=== PATIENT | male | born 1985 | race Caucasian/White ===

== ENCOUNTER 2018-05-06 18:01 | Inpatient (IN) | payer OTHER ==
[2018-05-06 18:38] VITALS: BMI 27.3
--- NOTE | 2018-05-06 22:23 | HP ---
"CIWA Score - Admission Criteria [facility]AS Guidelines: Admission for Medically Managed Detox: Requires at least one of the followin. CIWA greater than 12 2. Seizures within the past 24 hours 3. Delirium tremens within the past 24 hours 4. Hallucinations within the past 24 hours 5. Acute intervention needed for co occurring medical disorder 6. Acute intervention needed for co occurring psychiatric disorder 7. Severe withdrawal that cannot be handled at a lower level of care (continued vomiting, continued diarrhea, abnormal vital signs) requiring intravenous medication and/or fluids 8. Admission ROS S - HPI Chief Complaint: Here for rehab stabilization. Current cocaine use. Allergies/Adverse Reactions: Allergies Allergy/AdvReac Type Severity Reaction Status Date / Time shellfish derived Allergy Severe Verified 05/06/18 19:24 History of Present Illness: Current hx of cocaine use since age 30. Past hx opiate use disorder - stopped about 10 days ago. Stopped nicotine about 10 days ago. Here for stabilization of substance use withdrawal and to see a MH provider and get restarted on psych meds. Off MH meds for approx 2 months. Last prescription filled in [facility] in [facility]. Hx Bipolar disorder and insomnia Hx Cluster headaches. Hx Arachnoid cyst Hx: asthma - seasonal - no recent exacerbation. Hx seizures - last 2 years ago. Denies blackouts/overdoses Search Terms: Shaheed Drummond, 1985 Search Date: 05/06/2018 10:20:19 PM The Drug Utilization Report below displays all of the controlled substance prescriptions, if any, that your patient has filled in the last twelve months. The information displayed on this report is compiled from pharmacy submissions to the Department, and accurately reflects the information as submitted by the pharmacies. This report was requested by: Abi Burk | Reference #: [id number] Others' Prescriptions Patient Name: Shaheed Drummond Date: 1985 Address: [address] [place] [address] Sex: Male Rx Written Rx Dispensed Drug Quantity Days Supply Prescriber Name 01/27/2018 01/27/2018 oxycodone hcl 30 mg tablet 150 30 Philippe Garcia MD 01/27/2018 01/27/2018 alprazolam 1 mg tablet 150 30 Philippe Garcia MD 01/27/2018 01/27/2018 dextroamp-amphetamin 30 mg tab 60 30 Philippe Garcia MD 12/09/2017 12/26/2017 oxycodone hcl 30 mg tablet 180 30 BlattiPhilippe MD 12/09/2017 12/26/2017 dextroamp-amphetamin 30 mg tab 60 30 BlattiPhilippe MD 12/09/2017 12/24/2017 oxycodone-acetaminophen 10-325 mg tab 120 30 BlattiPhilippe MD 12/09/2017 12/09/2017 alprazolam 2 mg tablet 120 30 Blatti, Philippe Epps MD 11/28/2017 11/28/2017 oxycodone hcl 30 mg tablet 180 30 BlattiPhilippe MD 11/28/2017 11/28/2017 dextroamp-amphetamin 30 mg tab 60 30 BlattiPhilippe MD 11/25/2017 11/25/2017 hydrocodone-acetaminophen 10-325 mg tablet 120 30 Blatti Philippe MD 11/11/2017 11/20/2017 alprazolam 1 mg tablet 120 30 BlattiPhilippe MD 11/11/2017 11/11/2017 oxycodone hcl 30 mg tablet 200 20 BlattiPhilippe MD 11/11/2017 11/11/2017 hydromorphone 8 mg tablet 80 20 BlattiPhilippe MD 10/30/2017 11/05/2017 oxycodone hcl 30 mg tablet 60 10 BlattiPhilippe MD 10/30/2017 11/04/2017 hydromorphone 8 mg tablet 25 7 BlattiPhilippe MD 10/03/2017 10/27/2017 dextroamp-amphetamin 30 mg tab 60 30 BlattiPhilippe MD 10/03/2017 10/13/2017 oxycodone hcl 30 mg tablet 240 30 BlattiPhilippe MD 10/03/2017 10/03/2017 hydromorphone 8 mg tablet 180 30 BlattPhilippe gómez MD 09/12/2017 09/29/2017 dextroamp-amphetamin 30 mg tab 60 30 BlattPhilippe gómez MD 09/12/2017 09/16/2017 hydromorphone 4 mg tablet 120 30 BlattPhilippe gómez MD 09/12/2017 09/16/2017 oxycodone hcl 30 mg tablet 360 30 BlattPhilippe gómez MD Patient Name: Shaheed Drummond Date: 1985 Address: [address] [place] [id number] Sex: Male Rx Written Rx Dispensed Drug Quantity Days Supply Prescriber Name 10/23/2017 10/23/2017 buprenorphine-naloxone 8-2 mg sl tablet 24 8 Philippe Garcia MD 10/20/2017 10/20/2017 alprazolam 2 mg tablet 120 30 Philippe Garcia MD 10/03/2017 10/09/2017 alprazolam 1 mg tablet 120 30 BlaPhilippe stone MD 08/28/2017 09/14/2017 alprazolam 1 mg tablet 180 30 BlaPhilippe stone MD 08/28/2017 09/04/2017 hydromorphone 8 mg tablet 180 30 Philippe Garcia MD 08/19/2017 08/30/2017 dextroamp-amphetamin 30 mg tab 60 30 BlaPhilippe stone MD 08/28/2017 08/28/2017 oxycodone hcl 30 mg tablet 360 30 BlaPhilippe stone MD 08/22/2017 08/22/2017 oxycodone hcl 30 mg tablet 96 8 BlattPhilippe gómez MD 08/05/2017 08/16/2017 alprazolam 1 mg tablet 180 30 BlaPhilippe stone MD 07/16/2017 07/31/2017 dextroamp-amphetamin 30 mg tab 60 30 BlaPhilippe stone MD 07/23/2017 07/23/2017 alprazolam 1 mg tablet 180 30 BlaPhilippe stone MD 07/16/2017 07/19/2017 oxycodone hcl 30 mg tablet 180 30 BlaPhilippe stone MD 07/16/2017 07/16/2017 hydromorphone 8 mg tablet 120 30 BlaPhilippe stone MD 06/24/2017 07/06/2017 dextroamp-amphetamin 30 mg tab 60 30 Philippe Garcia MD 06/24/2017 07/06/2017 oxycodone hcl 30 mg tablet 90 30 BlaPhilippe stone MD 06/24/2017 06/27/2017 oxycodone hcl er 80 mg tablet 90 30 BlaPhilippe stone MD 06/24/2017 06/24/2017 oxycodone hcl er 40 mg tablet 20 7 BlaPhilippe stone MD 06/24/2017 06/24/2017 alprazolam 1 mg tablet 180 30 BlaPhilippe stone MD 05/28/2017 06/09/2017 oxycodone hcl 30 mg tablet 180 30 Philippe Garcia MD 05/28/2017 06/08/2017 alprazolam 2 mg tablet 100 16 Phiilppe Garcia MD 05/28/2017 06/03/2017 dextroamp-amphetamin 30 mg tab 60 30 Philippe Garcia MD 05/28/2017 06/03/2017 hydromorphone 8 mg tablet 120 30 BlaPhilippe stone MD 04/29/2017 05/13/2017 oxycodone hcl 30 mg tablet 180 30 Philippe Garcia MD 04/29/2017 05/08/2017 alprazolam 1 mg tablet 180 30 Philippe Garcia MD Patient Name: Shaheed Drummond Date: 1985 Address: [address] [place] [id number] Sex: Male Rx Written Rx Dispensed Drug Quantity Days Supply Prescriber Name 08/20/2017 08/20/2017 dextroamp-amphetamin 10 mg tab 60 30 Philippe Garcia MD Patient Name: Shaheed Drummond Date: 1985 Address: [address] [place] [id number] Sex: Male Rx Written Rx Dispensed Drug Quantity Days Supply Prescriber Name 08/05/2017 08/05/2017 oxycodone hcl 30 mg tablet 240 30 Philippe Garcia MD 08/05/2017 08/05/2017 hydromorphone 8 mg tablet 180 30 Philippe Garcia MD 07/29/2017 07/29/2017 hydromorphone 4 mg tablet 30 3 Eduin Regalado MD 07/26/2017 07/26/2017 hydromorphone 4 mg tablet 30 5 Eduin Regalado MD 07/25/2017 07/25/2017 oxycodone-acetaminophen 5-325 mg tablet 14 3 Laura Parikh ([place]) Exam Limitations: No Limitations - Ebola screening Have you traveled outside of the country in the last 21 days: No Have you had contact with anyone from an Ebola affected area: No Have you been sick,other than usual withdrawal symptoms: No Do you have a fever: No - Review of Systems Constitutional: Chills, Diaphoresis, Changes in sleep (Difficulty falling asleep ) EENT: reports: Blurred Vision Respiratory: reports: No Symptoms reported, Other (Seasonal asthma - (Fall)) Cardiac: reports: No Symptoms Reported GI: reports: Indigestion (Hiatal hernia - resolved w/ tums) : reports: No Symptoms Reported Musculoskeletal: reports: No Symptoms Reported Integumentary: reports: No Symptoms Reported Neuro: reports: Tremors (Mild) Endocrine: reports: No Symptoms Reported Hematology: reports: No Symptoms Reported Psychiatric: reports: Judgement Intact, Orientated x3, Agitated, Anxious, Depressed (Denies toughts of harming self or others) Patient History - PPD History Previous Implant?: Yes Documented Results: Negative w/o proof Implanted On Prior R Admission?: No PPD to be Administered?: Yes - Smoking Cessation Smoking history: Former smoker Have you smoked in the past 12 months: Yes Aproximately how many cigarettes per day: 20 (Stopped 2 weeks ago) Hx Chewing Tobacco Use: No Initiated information on smoking cessation: Yes 'Breaking Loose' booklet given: 05/06/18 - Substance & Tx. History Hx Alcohol Use: No Hx Substance Use: Yes Substance Use Type: Cocaine, Heroin, Marijuana, Opiates Hx Substance Use Treatment: Yes (detox, rehabs, past Suboxone, past [facility] ) Admission Physical Exam S - Vital Signs Vital Signs: Vital Signs - 24 hr 05/06/18 18:35 Temperature 98.8 F Pulse Rate 75 Respiratory 18 Rate Blood Pressure 112/70 - Physical General Appearance: Yes: Mild Distress, Tremorous, Anxious HEENTM: Yes: EOMI, Hearing grossly Normal, Normocephalic, Normal Voice, ADELAIDA Respiratory: Yes: Lungs Clear, Normal Breath Sounds, No Respiratory Distress Neck: Yes: No masses,lesions,Nodules, Supple Breast: Yes: Breast Exam Deferred Cardiology: Yes: Regular Rhythm, Regular Rate, S1, S2 (split) Abdominal: Yes: Normal Bowel Sounds, Non Tender, Soft Genitourinary: Yes: Within Normal Limits Back: Yes: Normal Inspection Musculoskeletal: Yes: full range of Motion, Gait Steady, Other (Missing tip of ( L) index finger. FROM. Cap refill < 3 sec.) Extremities: Yes: Normal Capillary Refill, Normal Inspection, Normal Range of Motion, Non-Tender, Tremors (Mild tremors of hands) Neurological: Yes: soldering machine feeder II-XII NML intact, Fully Oriented, Alert, Motor Strength 5/5, Normal Mood/Affect Integumentary: Yes: Normal Color, Dry, Warm Lymphatic: Yes: Within Normal Limits - Diagnostic (1) Cocaine use disorder Current Visit: Yes Status: Chronic (2) Nicotine dependence in remission Current Visit: Yes Status: Acute Qualifiers: Nicotine product type: cigarettes Qualified Code(s): F17.211 - Nicotine dependence, cigarettes, in remission (3) Mild opioid abuse in early remission Current Visit: No Status: Acute Cleared for Admission [facility] - Detox or Rehab Claeared for Rehab Admission: Yes [facility] Breath Alcohol Content Breath Alcohol Content: 0 Urine Drug Screen - Results Drug Screen Negative: No Urine Drug Screen Results: [facility] Inpatient Rehab Admission - Initial Determination Are CD services needed?: Yes Free of communicable disease: Yes Not in need of hospitalization: Yes - Rehab Admission Criteria Previous failed treatment: Yes Poor recovery environment: Yes Comorbidities: Yes Lacks judgement: No Patient is meeting Inpatient Rehab admission criteria:: Yes"
[2018-05-06] MEDS ORDERED: MAGNESIUM CITRATE 300 ML BOTTLE PO PRN (22:52)
[2018-05-06] MEDS ORDERED: ACETAMINOPHEN 325 MG TABLET (FP) PO PRN (22:52)
[2018-05-06] MEDS ORDERED: MAGNESIUM HYDROX 2400MG/30ML ORAL SUSPENSION 30 ML CUP PO PRN (22:52)
[2018-05-06] MEDS ORDERED: IBUPROFEN 400 MG TABLET (FP) PO PRN (22:52)
[2018-05-06] MEDS ORDERED: MAG HYDROX/AL HYDROX/SIMETH 30 ML UNIT-DOSE CUP PO PRN (22:52)
[2018-05-06] MEDS ORDERED: LOPERAMIDE HCL 2 MG CAPSULE PO PRN (22:52)
[2018-05-06] MEDS ORDERED: MENTHOL/PHENOL 1 EACH UD MM PRN (22:52)
[2018-05-06] MEDS: cloNIDine HCL 0.1 MG TABLET PO SCH (23:25)
[2018-05-06] MEDS: hydrOXYzine PAMOATE 50 MG CAPSULE (FP) PO PRN (23:26)
[2018-05-06] MEDS: MELATONIN 5 MG TABLETS PO PRN (23:26)
[2018-05-06] MEDS ORDERED: TUBERCULIN PPD 5 TU/0.1ML VIAL ID ONE (23:27)
[2018-05-07 01:26] LABS: URINE APPEARANCE CLOUDY; URINE BILIRUBIN NEGATIVE (<2.0 mg/dL); URINE COLOR YELLOW; URINE GLUCOSE (UA) NEGATIVE (NEGATIVE); URINE KETONE NEGATIVE (NEGATIVE); URINE LEUK ESTERASE NEGATIVE (NEGATIVE); URINE NITRITE NEGATIVE (NEGATIVE); URINE PROTEIN NEGATIVE (NEGATIVE); URINE UROBILINOGEN NEGATIVE mg/dL (0.2-1.0)
[2018-05-07] MEDS: PRENATAL VITAMINS W/ FOLIC ACID TABLET (FP) PO SCH (10:28)
[2018-05-07] MEDS: cloNIDine HCL 0.1 MG TABLET PO SCH ×2 (10:28→21:27)
[2018-05-07] MEDS: hydrOXYzine PAMOATE 50 MG CAPSULE (FP) PO PRN ×2 (10:28→21:27)
[2018-05-07] MEDS: NICOTINE POLACRILEX 2 MG GUM BC PRN (10:29)
[2018-05-07 11:05] LABS: ALBUMIN 3.8 g/dl (3.4-5.0); ALK PHOS 82 U/L (45-117); ANION GAP 7 MMOL/L (8-16); BILIRUBIN,TOTAL 0.4 mg/dL (0.2-1); BLOOD UREA NITROGEN 17 mg/dL (7-18); CALCIUM 8.8 mg/dL (8.5-10.1); CHLORIDE 107 mmol/L (98-107); CO2 27 mmol/L (21-32); CREATININE 1.1 mg/dL (0.55-1.3); GLUCOSE,RANDOM 132 mg/dL (74-106); SGOT/AST 16 U/L (15-37); SGPT/ALT 22 U/L (13-61); SODIUM 141 mmol/L (136-145); TOT PROT 6.6 g/dl (6.4-8.2)
[2018-05-07 11:13] LABS: HEMATOCRIT 42.8 % (35.4-49); HEMOGLOBIN 14.8 GM/dL (11.7-16.9); MCH 29.2 pg (25.7-33.7); MCHC 34.5 g/dl (32.0-35.9); MEAN CELL VOLUME 84.7 fl (80-96); MEAN PLT VOLUME 9.4 fl (7.5-11.1); PLATELET COUNT 303 K/MM3 (134-434); RBC 5.05 M/mm3 (4.00-5.60); RDW 12.8 % (11.9-15.9); WHITE BLOOD COUNT 6.8 K/mm3 (4.0-10.0)
--- NOTE | 2018-05-07 12:28 | EKG ---
Test Reason : Blood Pressure : / mmHG Vent. Rate : 062 BPM Atrial Rate : 062 BPM P-R Int : 144 ms QRS Dur : 104 ms QT Int : 402 ms P-R-T Axes : 039 066 046 degrees QTc Int : 408 ms NORMAL SINUS RHYTHM NORMAL ECG NO PREVIOUS ECGS AVAILABLE Confirmed by JOJO BLAND, JACKLYN ([id number]) on 05/07/2018 12:28:08 PM Referred By: Confirmed By:JACKLYN URIBE MD
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
[2018-05-07] MEDS: THIAMINE HCL 100 MG TABLET (FP) PO SCH (21:27)
[2018-05-07] MEDS: risperiDONE 1 MG TABLET (FP) PO SCH (21:27)
[2018-05-07] MEDS: MELATONIN 5 MG TABLETS PO PRN (21:27)
[2018-05-08] MEDS: hydrOXYzine PAMOATE 50 MG CAPSULE (FP) PO PRN ×2 (10:23→21:25)
[2018-05-08] MEDS: risperiDONE 1 MG TABLET (FP) PO SCH ×2 (10:23→21:25)
[2018-05-08] MEDS: PRENATAL VITAMINS W/ FOLIC ACID TABLET (FP) PO SCH (10:23)
[2018-05-08] MEDS: cloNIDine HCL 0.1 MG TABLET PO SCH ×2 (10:23→21:25)
[2018-05-08] MEDS: THIAMINE HCL 100 MG TABLET (FP) PO SCH (21:25)
[2018-05-09] MEDS: PRENATAL VITAMINS W/ FOLIC ACID TABLET (FP) PO SCH (10:08)
[2018-05-09] MEDS: cloNIDine HCL 0.1 MG TABLET PO SCH ×2 (10:09→21:43)
[2018-05-09] MEDS: risperiDONE 1 MG TABLET (FP) PO SCH ×2 (10:09→21:42)
[2018-05-09] MEDS: THIAMINE HCL 100 MG TABLET (FP) PO SCH (21:42)
[2018-05-10] MEDS: hydrOXYzine PAMOATE 50 MG CAPSULE (FP) PO PRN ×2 (10:32→21:33)
[2018-05-10] MEDS: risperiDONE 1 MG TABLET (FP) PO SCH ×2 (10:32→21:33)
[2018-05-10] MEDS: cloNIDine HCL 0.1 MG TABLET PO SCH ×2 (10:32→21:33)
[2018-05-10] MEDS: PRENATAL VITAMINS W/ FOLIC ACID TABLET (FP) PO SCH (10:32)
[2018-05-10] MEDS: THIAMINE HCL 100 MG TABLET (FP) PO SCH (21:33)
[2018-05-11] MEDS: cloNIDine HCL 0.1 MG TABLET PO SCH ×2 (10:30→21:34)
[2018-05-11] MEDS: PRENATAL VITAMINS W/ FOLIC ACID TABLET (FP) PO SCH (10:30)
[2018-05-11] MEDS: risperiDONE 1 MG TABLET (FP) PO SCH ×2 (10:30→21:34)
[2018-05-11] MEDS: THIAMINE HCL 100 MG TABLET (FP) PO SCH (21:34)
[2018-05-11] MEDS: MELATONIN 5 MG TABLETS PO PRN (21:34)
[2018-05-12] MEDS: cloNIDine HCL 0.1 MG TABLET PO SCH ×2 (10:23→21:46)
[2018-05-12] MEDS: PRENATAL VITAMINS W/ FOLIC ACID TABLET (FP) PO SCH (10:23)
[2018-05-12] MEDS: risperiDONE 1 MG TABLET (FP) PO SCH ×2 (10:23→21:46)
[2018-05-12] MEDS: THIAMINE HCL 100 MG TABLET (FP) PO SCH (21:45)
[2018-05-13] MEDS: risperiDONE 1 MG TABLET (FP) PO SCH ×2 (10:15→21:45)
[2018-05-13] MEDS: PRENATAL VITAMINS W/ FOLIC ACID TABLET (FP) PO SCH (10:15)
[2018-05-13] MEDS: cloNIDine HCL 0.1 MG TABLET PO SCH ×2 (10:15→21:45)
[2018-05-13] MEDS: MELATONIN 5 MG TABLETS PO PRN (21:45)
[2018-05-13] MEDS: THIAMINE HCL 100 MG TABLET (FP) PO SCH (21:45)
[2018-05-14] MEDS: cloNIDine HCL 0.1 MG TABLET PO SCH ×2 (10:28→21:35)
[2018-05-14] MEDS: risperiDONE 1 MG TABLET (FP) PO SCH ×2 (10:28→21:35)
[2018-05-14] MEDS: PRENATAL VITAMINS W/ FOLIC ACID TABLET (FP) PO SCH (10:28)
[2018-05-14] MEDS: hydrOXYzine PAMOATE 50 MG CAPSULE (FP) PO PRN ×2 (15:58→21:36)
[2018-05-14] MEDS: THIAMINE HCL 100 MG TABLET (FP) PO SCH (21:35)
[2018-05-14] MEDS: MELATONIN 5 MG TABLETS PO PRN (21:36)
[2018-05-15] MEDS: PRENATAL VITAMINS W/ FOLIC ACID TABLET (FP) PO SCH (10:15)
[2018-05-15] MEDS: risperiDONE 1 MG TABLET (FP) PO SCH ×2 (10:15→21:35)
[2018-05-15] MEDS: cloNIDine HCL 0.1 MG TABLET PO SCH ×2 (10:16→21:35)
[2018-05-15] MEDS: THIAMINE HCL 100 MG TABLET (FP) PO SCH (21:35)
[2018-05-15] MEDS: MELATONIN 5 MG TABLETS PO PRN (21:35)
[2018-05-16] MEDS: cloNIDine HCL 0.1 MG TABLET PO SCH ×2 (10:43→21:45)
[2018-05-16] MEDS: risperiDONE 1 MG TABLET (FP) PO SCH ×2 (10:43→21:45)
[2018-05-16] MEDS: PRENATAL VITAMINS W/ FOLIC ACID TABLET (FP) PO SCH (10:43)
[2018-05-16] MEDS: THIAMINE HCL 100 MG TABLET (FP) PO SCH (21:45)
[2018-05-17] MEDS: PRENATAL VITAMINS W/ FOLIC ACID TABLET (FP) PO SCH (09:58)
[2018-05-17] MEDS: cloNIDine HCL 0.1 MG TABLET PO SCH ×2 (09:58→21:59)
[2018-05-17] MEDS: risperiDONE 1 MG TABLET (FP) PO SCH ×2 (09:58→21:59)
[2018-05-17] MEDS: NICOTINE POLACRILEX 2 MG GUM BC PRN (18:56)
[2018-05-17] MEDS: hydrOXYzine PAMOATE 50 MG CAPSULE (FP) PO PRN (18:56)
[2018-05-17] MEDS: THIAMINE HCL 100 MG TABLET (FP) PO SCH (21:59)
[2018-05-18] MEDS: cloNIDine HCL 0.1 MG TABLET PO SCH ×2 (10:00→21:48)
[2018-05-18] MEDS: PRENATAL VITAMINS W/ FOLIC ACID TABLET (FP) PO SCH (10:00)
[2018-05-18] MEDS: risperiDONE 1 MG TABLET (FP) PO SCH ×2 (10:00→21:48)
--- NOTE | 2018-05-18 14:21 | PN ---
Psychiatric Progress Note Vital Signs: Vital Signs Period Temp Pulse Resp BP Sys/Horner Pulse Ox Last 24 Hr 74-88 16-18 111-115/68-70 Date of Session: 05/18/18 Chief Complaint:: Discharge Note HPI: Patient addessing Opioid and Cocaine Dependence comorbid with Nicotine Dependence and Mood Disorder ROS: Asthma, Cluster headache, Arachnoid cyst Current Medications: Active Medications Generic Name Dose Route Start Last Admin Trade Name Freq PRN Reason Stop Dose Admin Acetaminophen 650 mg 05/06/18 22:52 Tylenol - PO Q4H PRN FEVER Al Hydroxide/Mg Hydroxide 30 ml 05/06/18 22:52 Mylanta Oral Suspension - PO Q6H PRN DYSPEPSIA Clonidine 0.1 mg 05/06/18 23:15 05/18/18 10:00 Catapres - PO 0.1 mg BID TANIYA Administration Eucalyptus/Menthol/Phenol/Sorbitol 1 each 05/06/18 22:52 Cepastat Lozenge - MM Q4H PRN SORE THROAT Hydroxyzine Pamoate 50 mg 05/06/18 22:52 05/17/18 18:56 Vistaril - PO 50 mg Q4H PRN Administration AGITATION Ibuprofen 400 mg 05/06/18 22:52 Motrin - PO Q6H PRN Pain level 4-6 Loperamide HCl 4 mg 05/06/18 22:52 Imodium - PO Q6H PRN DIARRHEA Magnesium Citrate 300 ml 05/06/18 22:52 Citroma - PO Q48H PRN CONSTIPATION Magnesium Hydroxide 30 ml 05/06/18 22:52 Milk Of Magnesia - PO DAILY PRN CONSTIPATION Melatonin 5 mg 05/06/18 22:00 05/15/18 21:35 Melatonin PO 5 mg HS PRN Administration INSOMNIA Nicotine Polacrilex 2 mg 05/06/18 22:52 05/17/18 18:56 Nicorette Gum - BC 2 mg Q2H PRN Administration NICOTINE REPLACEMENT RX Multivit/Folic Acid/Iron 1 tab 05/07/18 10:00 05/18/18 10:00 Vitamins (Sjr) - PO 1 tab DAILY TANIYA Administration Risperidone 1 mg 05/07/18 22:00 05/18/18 10:00 Risperdal - PO 1 mg BID TANIYA Administration Thiamine HCl 100 mg 05/07/18 22:00 05/17/18 21:59 Vitamin B1 - PO 100 mg HS TANIYA Administration Current Side Effect: No Lab tests ordered: Yes Lab tests reviewed: Yes Provider note:: Patient will complete this program on 05/19/18. He has met his treatment goals and will continue to address his issues in prison residential treatment at [facility] at [address] [place] [address]. Told journalists and other writers that from his participation in this program, he has learned to be consistent in order to have stability in his life. He responded well to Risperdal 1 mg po BID. Script for 30 days supply of that medication will be electronically transmitted to [facility] at [address] [place] [address]. He is stable for discharge on 05/19/18 Total face to face time:: 35 Mental Status Exam - Mental Status Exam Alert and Oriented to: Time, Place, Person Cognitive Function: Fair Patient Appearance: Well Groomed Mood: Hopeful, Euthymic Affect: Appropriate Patient Behavior: Cooperative Speech Pattern: Clear Voice Loudness: Normal Thought Process: Intact, Goal Oriented Thought Disorder: Not Present Hallucinations: Denies Suicidal Ideation: Denies Homicidal Ideation: Denies Insight/Judgement: Fair Sleep: Fair Appetite: Good Muscle strength/Tone: Normal Gait/Station: Normal Psychiatric Treatment Plan - Problem List (1) Opioid dependence Current Visit: Yes (2) Cocaine dependence Current Visit: Yes (3) Nicotine dependence Current Visit: Yes (4) Mood disorder Current Visit: Yes (5) Bipolar disorder Current Visit: Yes (6) Asthma Current Visit: Yes (7) Cluster headache Current Visit: Yes (8) Arachnoid cyst Current Visit: Yes Initial treatment plan: Patient will be discharged tomorrow and referred to [facility] in [place], [place] for computer terminal operator residential treatment
[2018-05-18] MEDS: hydrOXYzine PAMOATE 50 MG CAPSULE (FP) PO PRN (19:09)
[2018-05-18] MEDS: THIAMINE HCL 100 MG TABLET (FP) PO SCH (21:49)
[2018-05-18] MEDS: MELATONIN 5 MG TABLETS PO PRN (21:49)
[2018-05-18] MEDS: NICOTINE POLACRILEX 2 MG GUM BC PRN (22:04)
[2018-05-19 06:56] VITALS: TEMP 97.8
[2018-05-19] MEDS: cloNIDine HCL 0.1 MG TABLET PO SCH (09:30)
[2018-05-19] MEDS: PRENATAL VITAMINS W/ FOLIC ACID TABLET (FP) PO SCH (09:30)
[2018-05-19] MEDS: risperiDONE 1 MG TABLET (FP) PO SCH (09:30)
[2018-05-19 09:44] VITALS: BP 116/64; PULSE 80
== END 2018-05-19 09:35 | disposition home or self-care (01) | DRG 772 ==
LOC: YASAS 18:01 → Y3W 22:24
PROVIDERS: ADMIT Psychiatry & Neurology Psychiatry; ATTEND Psychiatry & Neurology Psychiatry
PROC: HZ42ZZZ Group Counseling for Substance Abuse Treatment, Cognitive-Behavioral (ICD-10-PCS; principal; 2018-05-06)
DX: F11.20 Opioid dependence, uncomplicated (principal); F14.20 Cocaine dependence, uncomplicated; F17.210 Nicotine dependence, cigarettes, uncomplicated; F39 Unspecified mood [affective] disorder; F31.9 Bipolar disorder, unspecified; J45.909 Unspecified asthma, uncomplicated; G93.0 Cerebral cysts; Z86.69 Personal history of other diseases of the nervous system and sense organs; Z91.013 Allergy to seafood
CPT/HCPCS: 36415; 80053; 80178; 81003; 85027; 86593; 93005; 93010; J0735; J2794